=== PATIENT | male | born 1975 | race Caucasian/White ===

== ENCOUNTER 2018-08-13 10:50 | Emergency (ER) | payer SELFPAY ==
--- NOTE | 2018-08-13 11:07 | ER Report ---
History and Physical Time Seen By MD: 11:06 Hx. of Stated Complaint: found [facility]. police was request to remove him. found [place] on highway. he's convinced the government is going to get him. walking from [place] here to buy computer equipment HPI/ROS found by police wandering gas station. paranoid. confused Remainder of the 14 system rev: Yes Allergies: Coded Allergies: No Known Drug Allergies (Unverified , 08/13/18) Home Meds Reported Medications Nicotine (NICOTROL) 10 Mg/Inh Ctr, 10 MG INH Q1-2H PRN for NICOTINE REPLACEMENT 08/16/18 Multivits,Ca,Minerals/Iron/FA (Thera M Plus Tablet) 1 Each Tablet, 1 PO QDAY 08/16/18 Olanzapine (ZYPREXA) 10 Mg Tablet, 10 MG PO BID, #60 1 Refill 08/16/18 Unable To Obtain Past Medical: Unable to Obtain/Update Reviewed Nurses Notes: Yes Old Medical Records Reviewed: Yes Hx Smoking: Yes Smoking Status: Current: Every Day Smoker Exposure to Second Hand Smoke?: No Hx Substance Use Disorder: No Hx Alcohol Use: No Constitutional Physical Exam GE: unkempt, pleassant, A/Ox4 HEENT: PERRL CV: RRR no m/r/g Lungs: cta BL Abdomen: soft, NTND Psych: no SI/HI, acutely psychotic, no rafael Medical Decision Making Data Points Laboratory Hematology Test 08/13/18 11:50 08/13/18 11:52 Red Blood Count 4.68 M/uL (4.00-5.60) Mean Corpuscular Volume 95.6 fL (80.0-96.0) Mean Corpuscular Hemoglobin 32.7 pg (26.0-33.0) Mean Corpuscular Hemoglobin Concent 34.2 g/dL (32.0-36.0) Red Cell Distribution Width 12.9 % (11.5-14.5) Mean Platelet Volume 8.4 fL (7.2-11.1) Neutrophils (%) (Auto) 50.1 % (39.4-72.5) Lymphocytes (%) (Auto) 36.4 % (17.6-49.6) Monocytes (%) (Auto) 8.6 % (4.1-12.4) Eosinophils (%) (Auto) 4.4 % (0.4-6.7) Basophils (%) (Auto) 0.5 % (0.3-1.4) Nucleated RBC Relative Count (auto) 0.1 /100WBC Neutrophils # (Auto) 3.2 K/uL (2.0-7.4) Lymphocytes # (Auto) 2.3 K/uL (1.3-3.6) Monocytes # (Auto) 0.5 K/uL (0.3-1.0) Eosinophils # (Auto) 0.3 K/uL (0.0-0.5) Basophils # (Auto) 0.0 K/uL (0.0-0.1) Nucleated RBC Absolute Count (auto) 0.01 K/uL Sodium Level 139 mmol/L (137-145) Potassium Level 4.0 mmol/L (3.5-5.0) Chloride Level 103 mmol/L (98-107) Carbon Dioxide Level 29 mmol/L (22-30) Blood Urea Nitrogen 13 mg/dl (9-21) Creatinine 0.70 mg/dl (0.66-1.25) Glomerular Filtration Rate Calc > 60.0 Random Glucose 90 mg/dl (75-110) Calcium Level 9.0 mg/dl (8.4-10.2) Magnesium Level 2.0 mg/dl (1.7-2.2) Total Bilirubin 0.4 mg/dl (0.2-1.3) Aspartate Amino Transf (AST/SGOT) 22 U/L (0-35) Alanine Aminotransferase (ALT/SGPT) 32 U/L (0-56) Alkaline Phosphatase 80 U/L (0-126) Total Protein 6.5 g/dl (6.3-8.2) Albumin 3.9 g/dl (3.5-5.0) Thyroid Stimulating Hormone (TSH) 0.60 uIU/ml (0.46-4.68) Salicylates Level < 10 mg/L Salicylate Last Dose Date u Acetaminophen Level < 10 ug/ml Serum Alcohol < 10 mg/dl Urine Color Yellow Urine Clarity Clear Urine pH 5.0 pH (4.8-9.5) Urine Specific [place] 1.020 Urine Protein Negative mg/dL (NEGATIVE) Urine Glucose (UA) Negative mg/dL (NEGATIVE) Urine Ketones Negative mg/dL (NEGATIVE) Urine Blood Negative (NEGATIVE) Urine Nitrite Negative (NEGATIVE) Urine Bilirubin Negative (NEGATIVE) Urine Urobilinogen Negative mg/dL (0.2-1.9) Urine Leukocyte Esterase Negative (NEGATIVE) Urine RBC None /HPF (0-2/HPF) Urine WBC 1 /HPF (0-5/HPF) Urine Squamous Epithelial Cells None /LPF (</=FEW) Urine Bacteria Few /HPF (NONE-FEW) Urine Mucus None /HPF (NONE-FEW) Urine Opiates Screen Negative Urine Barbiturates Screen Negative Ur Tricyclic Antidepressants Screen Negative Urine Phencyclidine Screen Negative Urine Amphetamines Screen Negative Urine Benzodiazepines Screen Negative Urine Cocaine Screen Negative Urine Cannabinoids Screen Negative Chemistry Test 08/13/18 11:50 08/13/18 11:52 White Blood Count 6.3 k/uL (4.5-11.0) Red Blood Count 4.68 M/uL (4.00-5.60) Hemoglobin 15.3 g/dL (14.0-18.0) Hematocrit 44.7 % (42.0-52.0) Mean Corpuscular Volume 95.6 fL (80.0-96.0) Mean Corpuscular Hemoglobin 32.7 pg (26.0-33.0) Mean Corpuscular Hemoglobin Concent 34.2 g/dL (32.0-36.0) Red Cell Distribution Width 12.9 % (11.5-14.5) Platelet Count 224 K/uL (150-450) Mean Platelet Volume 8.4 fL (7.2-11.1) Neutrophils (%) (Auto) 50.1 % (39.4-72.5) Lymphocytes (%) (Auto) 36.4 % (17.6-49.6) Monocytes (%) (Auto) 8.6 % (4.1-12.4) Eosinophils (%) (Auto) 4.4 % (0.4-6.7) Basophils (%) (Auto) 0.5 % (0.3-1.4) Nucleated RBC Relative Count (auto) 0.1 /100WBC Neutrophils # (Auto) 3.2 K/uL (2.0-7.4) Lymphocytes # (Auto) 2.3 K/uL (1.3-3.6) Monocytes # (Auto) 0.5 K/uL (0.3-1.0) Eosinophils # (Auto) 0.3 K/uL (0.0-0.5) Basophils # (Auto) 0.0 K/uL (0.0-0.1) Nucleated RBC Absolute Count (auto) 0.01 K/uL Glomerular Filtration Rate Calc > 60.0 Calcium Level 9.0 mg/dl (8.4-10.2) Magnesium Level 2.0 mg/dl (1.7-2.2) Total Bilirubin 0.4 mg/dl (0.2-1.3) Aspartate Amino Transf (AST/SGOT) 22 U/L (0-35) Alanine Aminotransferase (ALT/SGPT) 32 U/L (0-56) Alkaline Phosphatase 80 U/L (0-126) Total Protein 6.5 g/dl (6.3-8.2) Albumin 3.9 g/dl (3.5-5.0) Thyroid Stimulating Hormone (TSH) 0.60 uIU/ml (0.46-4.68) Salicylates Level < 10 mg/L Salicylate Last Dose Date u Acetaminophen Level < 10 ug/ml Serum Alcohol < 10 mg/dl Urine Color Yellow Urine Clarity Clear Urine pH 5.0 pH (4.8-9.5) Urine Specific [place] 1.020 Urine Protein Negative mg/dL (NEGATIVE) Urine Glucose (UA) Negative mg/dL (NEGATIVE) Urine Ketones Negative mg/dL (NEGATIVE) Urine Blood Negative (NEGATIVE) Urine Nitrite Negative (NEGATIVE) Urine Bilirubin Negative (NEGATIVE) Urine Urobilinogen Negative mg/dL (0.2-1.9) Urine Leukocyte Esterase Negative (NEGATIVE) Urine RBC None /HPF (0-2/HPF) Urine WBC 1 /HPF (0-5/HPF) Urine Squamous Epithelial Cells None /LPF (</=FEW) Urine Bacteria Few /HPF (NONE-FEW) Urine Mucus None /HPF (NONE-FEW) Urine Opiates Screen Negative Urine Barbiturates Screen Negative Ur Tricyclic Antidepressants Screen Negative Urine Phencyclidine Screen Negative Urine Amphetamines Screen Negative Urine Benzodiazepines Screen Negative Urine Cocaine Screen Negative Urine Cannabinoids Screen Negative Toxicology Test 08/13/18 11:50 08/13/18 11:52 Salicylates Level < 10 mg/L Salicylate Last Dose Date u Acetaminophen Level < 10 ug/ml Serum Alcohol < 10 mg/dl Urine Opiates Screen Negative Urine Barbiturates Screen Negative Ur Tricyclic Antidepressants Screen Negative Urine Phencyclidine Screen Negative Urine Amphetamines Screen Negative Urine Benzodiazepines Screen Negative Urine Cocaine Screen Negative Urine Cannabinoids Screen Negative Urinalysis Test 08/13/18 11:52 Urine Color Yellow Urine Clarity Clear Urine pH 5.0 pH (4.8-9.5) Urine Specific [place] 1.020 Urine Protein Negative mg/dL (NEGATIVE) Urine Glucose (UA) Negative mg/dL (NEGATIVE) Urine Ketones Negative mg/dL (NEGATIVE) Urine Blood Negative (NEGATIVE) Urine Nitrite Negative (NEGATIVE) Urine Bilirubin Negative (NEGATIVE) Urine Urobilinogen Negative mg/dL (0.2-1.9) Urine Leukocyte Esterase Negative (NEGATIVE) Urine RBC None /HPF (0-2/HPF) Urine WBC 1 /HPF (0-5/HPF) Urine Squamous Epithelial Cells None /LPF (</=FEW) Urine Bacteria Few /HPF (NONE-FEW) Urine Mucus None /HPF (NONE-FEW) ED Course/Re-evaluation ED Course Acutely psychotic with history of such. No meds currently. No drugs/etoh currently. Cooperate. Will admit to psych Decision to Disposition Date: Sep 13, 2018 Decision to Disposition Time: 17:56 Depart Departure Latest Vital Signs Impression: Primary Impression: Acute psychosis Condition: Improved Disposition: XFER TO [facility] GORDON ALFARO MD Aug 13, 2018 11:06
[2018-08-13 11:57] LABS: PLATELET COUNT, AUTOMATED 224 K/uL (150-450)
== END 2018-08-13 13:13 ==
LOC: ER 11:14
DX: F23 Brief psychotic disorder (principal)
CPT/HCPCS: 36415; 80305; 80320; 80329; 81001; 82040; 82247; 82310; 82374; 82435; 82565; 82947; 83735; 84075; 84132; 84155; 84295; 84443; 84450; 84460; 84520; 85025; 99284

== ENCOUNTER 2018-08-13 12:58 | Inpatient (IN) | payer SELFPAY ==
[~2018-08-13] VITALS: Ht 180.3 cm; Wt 73.5 kg
[2018-08-13] MEDS ORDERED: NICOTINE CARTRIDGE 1 EA PO PRN (13:15)
[2018-08-13] MEDS ORDERED: ACETAMINOPHEN 325 MG TAB PO PRN (13:15)
[2018-08-13] MEDS ORDERED: MAG HYD/AL HYD/SIMETH 30ML UDC PO PRN (13:15)
[2018-08-13 13:20] VITALS: BP 128/80
[2018-08-13] MEDS ORDERED: diphenhydrAMINE 25 MG CAP PO PRN (13:40)
[2018-08-13] MEDS ORDERED: LORazepam 1 MG TAB PO PRN ×2 (13:40)
[2018-08-13] MEDS ORDERED: OLANZapine 10 MG VIAL IM ONLY PRN (13:40)
[2018-08-13] MEDS ORDERED: diphenhydrAMINE 50 MG/ML VIAL IM PRN (13:40)
[2018-08-13] MEDS ORDERED: WATER STERILE 10 ML VIAL IM ONLY PRN (13:40)
[2018-08-13] MEDS ORDERED: OLANZapine 5 MG TAB PO PRN ×2 (13:40)
[2018-08-13] MEDS ORDERED: LORazepam 2 MG/ML VIAL IM PRN (13:40)
[2018-08-13] MEDS: OLANZapine 5 MG TAB PO SCH ×2 (14:21→21:00)
[2018-08-14 06:31] VITALS: BP 118/70
[2018-08-14] MEDS: MULTIVITAMINS TAB PO SCH (08:36)
[2018-08-14] MEDS: OLANZapine 5 MG TAB PO SCH ×2 (08:36→21:00)
[2018-08-14] MEDS: NICOTINE INH SYSTEM 10 MG/INH INH PRN (08:36)
--- NOTE | 2018-08-14 19:57 | HISTORY AND PHYSICAL ---
DATE OF ADMISSION: August 13, 2018 ATTENDING PHYSICIAN Milagros Bentley MD The patient was interviewed at 0900 on August 14, 2018, for this dictation. CHIEF COMPLAINT "Because the validation leader had warned me, and I made a deal with the [facility] because I was criminal trespassing." HISTORY OF PRESENT ILLNESS The patient is a 43-year-old male who is admitted voluntarily for approximately his fifth or sixth psychiatric admission. He has a history of chronic schizophrenia. The patient entered the [employer] office here in [place], and police were called. When they got there, he was wandering on the highway. The patient was disheveled and malodorous and appeared to be homeless with a large backpack and a sleeping roll. He was not making much sense and agreed to come to the hospital emergency room. In the ER, he was cooperative and did agree to psychiatric admission. On interview this morning, he is able to give some history, but this is certainly impaired by paranoid delusions and a very disorganized thought process. From we can gather, the patient has been living for the past five years or so in the [place] area where he says he lives at a homeless clinic and attends a place called [facility] for medications and health care. He does acknowledge a diagnosis of schizophrenia. He says that he was traveling up to [place] to buy computers, and then he says he wants to return to [place] try to buy a vehicle. He does acknowledge hearing voices, and he says, "They act like they are my friends. They are mean when I am a bad person who smokes tobacco." He talks about the [employer] spying, and he talks about nuclear war. PAST MENTAL HEALTH HISTORY The patient says he has been hospitalized about five or six times in the past, and he mentions hospitals in [facility], [place], and the [facility]. He acknowledges getting some medication from the [facility] in [place] in recent years, but it is unclear if he has been compliant to any great extent. FAMILY PSYCHIATRIC HISTORY Unknown. MEDICAL HISTORY The patient denies significant medical illnesses. He says he did break one of his legs once many years ago when he was skiing. ALLERGIES TO MEDICATIONS NKDA, he does note that he is "allergic to salmonella." SOCIAL HISTORY He says he was born [place] in [place]. His parents were and still are . He was raised in [place], [place]. He has one brother who is three years older who lives in [facility], and the patient has no contact with him. He is a high school graduate and did attend some college at [employer]. He says he has an 8-year-old child, and he says he has most recently been living in a homeless senior living in [place]. He denies any history of physical or sexual abuse. LEGAL HISTORY He acknowledges spending about eight months in fpc in [place], [place], but he got pretty guarded and suspicious and would not answer any further questions about this. SUBSTANCE ABUSE HISTORY The patient does acknowledge a history of smoking marijuana and drinking alcohol. Again, he got pretty paranoid when we were asking about drugs. Later, he said he has smoked cocaine in the past. He did deny any use of intravenous drugs. PHYSICAL EXAMINATION Please see the emergency room physician's report. VITAL SIGNS: Temperature 98.5, pulse 60, respiratory rate 16, blood pressure 120/80, pulse ox is 97 on room air. LABORATORY DATA CBC within normal limits. Chemistry panel within normal limits. TSH normal at 0.60. Tox screen is negative. Serum alcohol is nil. Urinalysis is within normal limits. MENTAL STATUS EXAMINATION The patient was very disheveled with dark suntan and mild sunburn. He was cooperative with coming into the interview room and cooperative with remaining seated. He did have some odd stereotypies with movements of his hands and fingers in odd ways when he was speaking. Speech was low in volume. At times, it was hard to understand him. At other times, no problem. He was not pressured in his speech. He described his mood as "fine." His affect was flat. Thought process was significant for prominent looseness of associations. He was able to give simple one- and two-word answers that seemed logical to closed- ended questions, but would quickly become loose again. Thought content was positive for auditory hallucinations. He denied visual hallucinations. He denied homicidal ideation and suicidal ideation. He had a lot of complex rambling of paranoid delusions regarding the government, spying, the , and things of this nature. He was alert and oriented to person, to [place]. He understood that he was in a hospital on a behavioral [facility]. He knew the year, but not the month nor the date. Memory was relatively intact for brief questions of his past history, difficult to assess based on psychosis. Intelligence seemed to be average based on interview. Insight and judgment are poor due to psychosis. ASSESSMENT Schizophrenia, chronic, paranoid type, in acute exacerbation. PLAN The patient is admitted to [facility]. He is being maintained on aggression precautions due to his disorganized thought process, but so far has been cooperative. He will attend individual and group therapies as indicated, especially as his psychosis begins to clear. He has agreed to be treated with Zyprexa 10 mg twice a day. His estimated length of stay will be three to five days. We will attempt to call his parents whose phone numbers we do have to establish more collateral information and to discuss discharge planning. MUNIRA
[2018-08-15 06:40] VITALS: BP 120/72
[2018-08-15] MEDS: NICOTINE INH SYSTEM 10 MG/INH INH PRN (06:52)
[2018-08-15] MEDS: MULTIVITAMINS TAB PO SCH (08:24)
[2018-08-15] MEDS: OLANZapine 5 MG TAB PO SCH ×2 (08:26→17:12)
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
[2018-08-15 14:30] VITALS: BP 118/78
[2018-08-15 17:30] VITALS: BP 132/68
[2018-08-16 05:16] VITALS: BP 132/81
[2018-08-16] MEDS: MULTIVITAMINS TAB PO SCH (08:15)
[2018-08-16] MEDS: NICOTINE INH SYSTEM 10 MG/INH INH PRN ×2 (08:16→10:38)
[2018-08-16] MEDS: OLANZapine 5 MG TAB PO SCH (08:20)
[2018-08-16] MEDS ORDERED: OLAN10TA21 PO (10:22)
[2018-08-16] MEDS ORDERED: MULT-7 PO (10:24)
[2018-08-16] MEDS ORDERED: NIC10R INH (10:26)
--- NOTE | 2018-08-16 10:59 | BHS Discharge Summary ---
[facility] Discharge Summary [id number] Encounter Date: Aug 16, 2018 [id number] Encounter Time: 09:00 Reason-Hosp/Final Diag (DSM-V): (1) Schizophrenia, paranoid, chronic Hospital Course & Plan: Pt was admitted to [facility] and started on Zyprexa 10 mg BID. He tolerated this well without oversedation nor EPS. He was delusional, hearing voices, and had a very disorganized thought process throughout his hospital stay, but each day these symptoms did improve. He never voiced any suicidal nor homicidal ideation, and there was never any aggression. We did speak to his parents with whom he does stay in contact, but who do not send him money. He spoke with them as well. His appetite was good, he slept well, and did get himself showed and cleaned up, requested a shave and trimmed his nails. By day of discharge he checked his card and found that his food stamp money had been added to the card as usual on the first of the month. He wanted to get back to [place] to the [facility] where they help him with his SSDI. He planned to stay in the homeless intermediate there as he has in the past. We assisted him with a Bus ticket and discounted medication with help from [facility]. (2) Cannabis use disorder, severe, in controlled environment (3) Amphetamine use disorder, severe, in controlled environment Mental Status Exam General Appearance: Casual, Well Groomed, Cooperative, Polite, Good Interaction, Bizarre Mannerisms (automatisms with hands/fingers) Speech: Clear, Spontaneous, Normal Volume, Rambling Mood: Other ("OK") Affect: Flat Thought Process: Loose Associations (Thought process better orgainized, able to provide logical answers to closed-ended questions, but gets loose with openended) Thought Content: No Suicidal Ideation, No Homicidal Ideation; Delusions, Auditory Halllucinations (Still verbalizing delusional material and AH, but less pre-occupied with these.); No Visual Hallucinations, No Thought Broadcasting, No Ideas of Reference, No Obsessions, No Compulsions, No Other Sensorium: Clear Cognition: Alert & Oriented-Person, Alert & Oriented-Place, Alert & Oriented- Time, [id number] Memory: Other (difficult to assess due to psychosis) Intelligence: Average Insight Judgment: Fair Departure Condition: Improved Discharge to: Self Care Discharge Instructions Home Meds Reported Medications Nicotine (NICOTROL) 10 Mg/Inh Ctr, 10 MG INH Q1-2H PRN for NICOTINE REPLACEMENT 08/16/18 Multivits,Ca,Minerals/Iron/FA (Thera M Plus Tablet) 1 Each Tablet, 1 PO QDAY 08/16/18 Olanzapine (ZYPREXA) 10 Mg Tablet, 10 MG PO BID, #60 1 Refill 08/16/18 Multpiple Antipsychotics Used: No Diet: Regular Activity: As Tolerated LORETTA LEI MD Aug 16, 2018 10:59
== END 2018-08-16 13:25 | disposition home or self-care (01) | DRG 885 ==
LOC: BHS 12:58
PROVIDERS: ADMIT Psychiatry & Neurology Psychiatry; ATTEND Psychiatry & Neurology Psychiatry
DX: F20.0 Paranoid schizophrenia (principal); F15.20 Other stimulant dependence, uncomplicated; F12.20 Cannabis dependence, uncomplicated; Z59.0 Homelessness; Z91.14 Patient's other noncompliance with medication regimen